=== PATIENT | female | born 1990 | race Caucasian/White ===

== ENCOUNTER 2018-02-21 09:05 | Emergency (ER) | payer BC ==
[~2018-02-21] VITALS: Ht 162.6 cm; Wt 93.4 kg
[~2018-02-21 09:05] MED LIST: BACTROBAN CREAM15 GM TP; BENADRYL25 MG PO; ENDOCET 5-3251 EACH PO; IBUPROFEN800 MG PO; MACROBID100 MG PO; NOHOMEMEDS; PRENATAL TABLE1 EACH PO; PROCARDIA20 MG PO; PYRIDIUM100 MG PO; SPRINTEC1 EACH PO; ULTRAM50 MG PO
[2018-02-21 09:11] VITALS: BP 134/91
[2018-02-21] MEDS ORDERED: MOBIC7.5 MG PO (10:09)
== END 2018-02-21 10:27 | disposition home or self-care (01) ==
LOC: EME 09:05
DX: M72.2 Plantar fascial fibromatosis (principal)
CPT/HCPCS: 73650; 99281; 99284